=== PATIENT | female | born 1975 ===

== ENCOUNTER 2021-06-09 19:57 | Emergency (ER) | payer SELFPAY ==
[2021-06-09 20:10] VITALS: BP 124/86
--- NOTE | 2021-06-10 09:20 | Electrocardiograph Report ---
[facility] Test Date: 2021-06-09 Test Time: 20:14:04 [facility] Department: Room: Gender: F Charge Rn: YANDEL : 1975 Requested By: VITOR ROSE Order Number: [id number] Reading MD: Gilberto Markham Measurements Intervals [place] Rate: 108 P: 61 NH: 125 QRS: 65 QRSD: 93 T: 261 QT: 343 QTc: 460 Interpretive Statements Sinus tachycardia nonspecific st-t No previous ECG available for comparison Electronically Signed On 06-10-2021 9:19:49 EST by Gilberto Markham
== END 2021-06-10 11:17 | disposition left against medical advice (07) ==
LOC: ED 19:57
DX: R20.0 Anesthesia of skin (principal); Z53.21 Procedure and treatment not carried out due to patient leaving prior to being seen by health care provider
CPT/HCPCS: 82962; 93005